=== PATIENT | male | born 1985 | race Caucasian/White ===

== ENCOUNTER → 2020-06-29 | Outpatient (CLI) | payer BC, OTHER ==
[~2020-06-29] MED LIST: AGM875T PO; HOLD METFORMIN - RECEIVED CONTRAST 20 ML VIAL IV SCH; IOHEXOL 350 MG/ML 100 ML (OMNIPAQUE 350) VIAL IV ONE; NS 100 ML (IVPB) BAG IV ONE; TRAM50TA2 PO
--- NOTE | 2020-06-29 08:52 | Diagnostic Imaging Report ---
PROCEDURE: CT abdomen and pelvis with contrast. TECHNIQUE: Multiple contiguous axial images were obtained through the abdomen and pelvis after administration of intravenous contrast. Auto Exposure Controls were utilized during the CT exam to meet ALARA standards for radiation dose reduction. All CT scans use one or more of the following dose optimizing techniques: automated exposure control, MA and/or KvP adjustment based on patient size and exam type or iterative reconstruction. INDICATION: Blood in stools. No prior studies are available for comparison. FINDINGS: The lung bases are clear. The liver and gallbladder are unremarkable. No biliary ductal dilatation is identified. The pancreas and spleen are unremarkable. No adrenal mass is detected. There may be a tiny nonobstructing calculus left kidney. Right kidney is unremarkable. There is no hydronephrosis. Aorta is non-aneurysmal. The small and large bowel loops are normal caliber. No obstruction is seen. No definite wall thickening is identified. No free fluid or fluid collection is seen. No central retroperitoneal or mesenteric lymphadenopathy is identified. No definite iliac or inguinal lymphadenopathy is detected. Bladder and prostate are unremarkable. IMPRESSION: Unremarkable CT of the abdomen and pelvis. No acute abnormality is detected. Dictated by: Dictated on workstation # [id number]
== END ==
LOC: RAD 08:15
PROVIDERS: ATTEND Family Medicine
DX: K92.1 Melena (principal); K13.79 Other lesions of oral mucosa
CPT/HCPCS: 74177